=== PATIENT | female | born 1990 | race Caucasian/White ===

== ENCOUNTER 2018-02-19 22:01 | Emergency (ER) | payer SELFPAY ==
[2018-02-19 22:41] LABS: APPEARANCE HAZY (CLEAR); BILIRUBIN NEGATIVE (NEGATIVE); COLOR YELLOW (YELLOW); GLUCOSE NEGATIVE (NEGATIVE); KETONE NEGATIVE (NEGATIVE); NITRITE NEGATIVE (NEGATIVE); PROTEIN TRACE mg/dL (NEGATIVE); SPECIFIC GRAVITY 1.025 (1.005-1.020); UROBILINOGEN NORMAL (NORMAL)
[2018-02-19 22:42] LABS: BACTERIA MANY /hpf (NONE SEEN); HCG URINE POSITIVE (NEGATIVE); MUCUS >1+ /lpf (NONE SEEN); RED CELLS - URINE 0-5 /hpf (0-5); WHITE CELLS - URINE >50 /hpf (0-5)
[2018-02-19 23:08] LABS: BASOPHILS 0.2 % (0-2); EOSINOPHILS 0.6 % (0-7); HEMATOCRIT 43.4 % (36.0-48.0); HEMOGLOBIN 14.4 g/dL (12-16); IMMATURE GRANULOCYTES 0.1 % (0-5); LYMPHOCYTES 28.7 % (15-50); MCHC 33.2 g/dL (31.0-37.0); MCV 87.3 fL (80.0-100.0); MEAN PLATELET VOLUME 11.5 fL (7.4-10.4); MONOCYTES 12.2 % (2-11); NEUTROPHILS 58.2 % (40-80); PLATELET COUNT 197 10x3/uL (130-400); RBC 4.97 10x6/uL (4.00-5.40); RDW 14.8 % (11.5-14.5); WBC 8.1 10x3/uL (4.8-10.8)
[2018-02-19 23:15] LABS: ALBUMIN 3.8 g/dL (3.4-5.0); ALKALINE PHOSPHATASE 78 U/L (46-116); ALT (SGPT) 42 U/L (10-68); CALC OSMOLALITY 278 mosm/kg (275-300); CALCIUM 9.8 mg/dL (8.5-10.1); CARBON DIOXIDE 23.7 mmol/L (21.0-32.0); CHLORIDE - SERUM 103 mmol/L (98-107); CREATININE - SERUM 0.9 mg/dL (0.6-1.3); GLUCOSE 87 mg/dL (74-106); POTASSIUM - SERUM 4.2 mmol/L (3.5-5.1); PROTEIN - SERUM 8.4 g/dL (6.4-8.2); SODIUM 139 mmol/L (136-145); UREA NITROGEN 17 mg/dL (7-18); eGFR NON AFRICAN AMERICAN 79 mL/min (90-120)
[2018-02-19 23:25] LABS: AMYLASE - SERUM 44 U/L (25-115); LIPASE 84 U/L (73-393)
== END 2018-02-19 23:42 | disposition home or self-care (01) ==
LOC: D.ER 22:01
PROVIDERS: Family Medicine
DX: Z33.1 Pregnant state, incidental (principal); N39.0 Urinary tract infection, site not specified

== ENCOUNTER 2018-05-28 23:05 | Emergency (ER) | payer MEDICAID ==
[~2018-05-28] VITALS: Ht 185.4 cm; Wt 72.7 kg
[2018-05-28 23:14] VITALS: Ht 185.4 cm; Wt 72.7 kg
[2018-05-28] MEDS ORDERED: PRENATAL COMPLE1 TAB PO (23:15)
[2018-05-29] MEDS ORDERED: KEFLEX500 MG PO (02:31)
[2018-05-29 02:52] VITALS: BP 112/78
== END 2018-05-29 02:53 | disposition home or self-care (01) ==
LOC: D.ER 23:05
DX: O26.892 Other specified pregnancy related conditions, second trimester (principal); Z3A.20 20 weeks gestation of pregnancy; L02.412 Cutaneous abscess of left axilla

== ENCOUNTER 2018-08-09 22:25 | Outpatient (CLI) | payer MEDICAID ==
[2018-05-28 23:14] VITALS: BMI 21.1
[~2018-08-09 22:25] MED LIST: KEFLEX500 MG PO; PRENATAL COMPLE1 TAB PO
[2018-08-09 22:42] LABS: APPEARANCE CLEAR (CLEAR); BILIRUBIN NEGATIVE (NEGATIVE); COLOR YELLOW (YELLOW); GLUCOSE NEGATIVE (NEGATIVE); KETONE NEGATIVE (NEGATIVE); NITRITE NEGATIVE (NEGATIVE); PROTEIN NEGATIVE (NEGATIVE); SPECIFIC GRAVITY 1.015 (1.005-1.020); UROBILINOGEN NORMAL (NORMAL)
[2018-08-09 22:44] LABS: BACTERIA FEW /hpf (NONE SEEN); EPITHELIAL CELLS 0-5 /hpf (0-5); RED CELLS - URINE 0-5 /hpf (0-5)
[2018-08-09 23:00] LABS: UDS - AMPHET NEGATIVE QUAL (NEGATIVE); UDS - BARB NEGATIVE QUAL (NEGATIVE); UDS - BENZO NEGATIVE QUAL (NEGATIVE); UDS - COCAINE NEGATIVE QUAL (NEGATIVE); UDS - OPIATE NEGATIVE QUAL (NEGATIVE); UDS - PCP NEGATIVE QUAL (NEGATIVE); UDS - THC NEGATIVE QUAL (NEGATIVE)
== END 2018-08-09 23:30 | disposition home or self-care (01) ==
LOC: D.LDO 22:25
PROVIDERS: Obstetrics & Gynecology
DX: O26.893 Other specified pregnancy related conditions, third trimester (principal); Z3A.31 31 weeks gestation of pregnancy; R10.12 Left upper quadrant pain; R10.2 Pelvic and perineal pain

== ENCOUNTER 2018-08-19 21:20 | Outpatient (CLI) | payer MEDICAID ==
[2018-05-28 23:14] VITALS: BMI 21.1
[2018-08-19 22:29] LABS: APPEARANCE CLEAR (CLEAR); BILIRUBIN NEGATIVE (NEGATIVE); COLOR YELLOW (YELLOW); GLUCOSE NEGATIVE (NEGATIVE); KETONE NEGATIVE (NEGATIVE); NITRITE NEGATIVE (NEGATIVE); PROTEIN NEGATIVE (NEGATIVE); SPECIFIC GRAVITY 1.015 (1.005-1.020); UROBILINOGEN NORMAL (NORMAL)
[2018-08-19 22:33] LABS: BACTERIA MANY /hpf (NONE SEEN); RED CELLS - URINE 0-5 /hpf (0-5)
[2018-08-19 22:40] LABS: UDS - AMPHET NEGATIVE QUAL (NEGATIVE); UDS - BARB NEGATIVE QUAL (NEGATIVE); UDS - BENZO NEGATIVE QUAL (NEGATIVE); UDS - COCAINE NEGATIVE QUAL (NEGATIVE); UDS - OPIATE NEGATIVE QUAL (NEGATIVE); UDS - PCP NEGATIVE QUAL (NEGATIVE); UDS - THC NEGATIVE QUAL (NEGATIVE)
[2018-08-21 22:07] LABS: CHLAMYDIA TRACHOMATIS, NAA Negative (Negative)
== END 2018-08-20 00:20 | disposition home or self-care (01) ==
LOC: D.LDO 21:20 → D.LD 23:30 → D.LDO 08-20 00:20
PROVIDERS: Obstetrics & Gynecology
DX: O26.899 Other specified pregnancy related conditions, unspecified trimester (principal); Z3A.00 Weeks of gestation of pregnancy not specified

== ENCOUNTER 2018-08-23 13:50 | Emergency (ER) | payer MEDICAID ==
[~2018-08-23] VITALS: Ht 185.4 cm; Wt 72.7 kg
[2018-08-23 13:54] VITALS: Ht 185.4 cm; Wt 72.7 kg
[2018-08-23] MEDS ORDERED: CLARITIN 10 MG10 MG PO (15:46)
[2018-08-23 15:58] VITALS: BP 130/77
== END 2018-08-23 15:59 | disposition home or self-care (01) ==
LOC: D.ER 13:50
DX: R09.89 Other specified symptoms and signs involving the circulatory and respiratory systems (principal); R04.0 Epistaxis

== ENCOUNTER 2018-11-20 18:44 | Emergency (ER) | payer MEDICAID ==
[~2018-11-20] VITALS: Ht 185.4 cm; Wt 70.0 kg
[~2018-11-20 18:44] MED LIST changes: +CLARITIN 10 MG10 MG PO
[2018-11-20 19:03] VITALS: Ht 185.4 cm; Wt 70.0 kg
[2018-11-20 19:49] LABS: BASOPHILS 0.6 % (0-2); EOSINOPHILS 1.7 % (0-7); HEMATOCRIT 38.7 % (36.0-48.0); IMMATURE GRANULOCYTES 0.2 % (0-5); LYMPHOCYTES 38.3 % (15-50); MCH 30.3 pg (26.0-34.0); MCHC 33.6 g/dL (31.0-37.0); MCV 90.2 fL (80.0-100.0); MEAN PLATELET VOLUME 11.7 fL (7.4-10.4); MONOCYTES 12.5 % (2-11); NEUTROPHILS 46.7 % (40-80); RBC 4.29 10x6/uL (4.00-5.40); RDW 12.3 % (11.5-14.5); WBC 4.8 10x3/uL (4.8-10.8)
[2018-11-20 20:02] LABS: PLATELET COUNT 136 10x3/uL (130-400)
[2018-11-20 20:04] LABS: ALBUMIN 3.9 g/dL (3.4-5.0); ALKALINE PHOSPHATASE 66 U/L (46-116); ALT (SGPT) 47 U/L (10-68); BILIRUBIN - TOTAL 0.23 mg/dL (0.2-1.3); CALC OSMOLALITY 280 mosm/kg (275-300); CALCIUM 8.7 mg/dL (8.5-10.1); CARBON DIOXIDE 21.3 mmol/L (21.0-32.0); CHLORIDE - SERUM 104 mmol/L (98-107); CREATININE - SERUM 0.8 mg/dL (0.6-1.3); GLUCOSE 87 mg/dL (74-106); POTASSIUM - SERUM 4.1 mmol/L (3.5-5.1); PROTEIN - SERUM 7.4 g/dL (6.4-8.2); SODIUM 141 mmol/L (136-145); UREA NITROGEN 15 mg/dL (7-18); eGFR NON AFRICAN AMERICAN 90 mL/min (90-120)
[2018-11-20 20:05] LABS: AMYLASE - SERUM 58 U/L (25-115); LIPASE 124 U/L (73-393); TROPONIN-I < 0.017 ng/mL (0.000-0.060)
[2018-11-20 20:32] LABS: APPEARANCE CLEAR (CLEAR); COLOR STRAW (YELLOW)
[2018-11-20 20:33] LABS: BILIRUBIN NEGATIVE (NEGATIVE); GLUCOSE NEGATIVE (NEGATIVE); HCG URINE NEGATIVE (NEGATIVE); KETONE NEGATIVE (NEGATIVE); NITRITE NEGATIVE (NEGATIVE); PROTEIN NEGATIVE (NEGATIVE); UROBILINOGEN NORMAL (NORMAL)
[2018-11-20] MEDS ORDERED: ZOFRAN8 MG PO (21:18)
[2018-11-20] MEDS ORDERED: TORADOL10 MG PO (21:18)
[2018-11-20 21:45] VITALS: BP 116/79
== END 2018-11-20 21:50 | disposition home or self-care (01) ==
LOC: D.ER 18:44
PROVIDERS: Family Medicine
DX: R10.11 Right upper quadrant pain (principal)